=== PATIENT | female | born 1955 | race Caucasian/White ===

== ENCOUNTER 2016-04-25 09:55 | Outpatient (CLI) | payer OTHER ==
--- NOTE | 2016-04-25 12:24 | DIAGNOSTIC IMAGING REPORT ---
PROCEDURE: MR LTD LOWER EXT JOINT-LEFT INDICATION: OSTEOARTHRITIS. Jennings and Nephew protocol for preop knee replacement. TECHNIQUE: Limited MRI of the knee was performed with high-resolution PD sagittal images. In addition, AP radiographs of the lower extremity were obtained with scanogram markers. Diagnostic interpretation is not provided. IMPRESSION: 1. Preoperative Jennings and Nephew protocol for knee prosthesis.
[2016-06-16] MEDS ORDERED: HYDROCHLOROTHIA25 MG PO (18:38)
[2016-06-16] MEDS ORDERED: LOSARTAN POTASS50 MG PO (18:38)
[2016-06-16] MEDS ORDERED: METOPROLOL SUCC50 MG PO (18:38)
[2016-06-16] MEDS ORDERED: PAROXETINE HCL10 MG PO (18:39)
[2016-06-16] MEDS ORDERED: OMEPRAZOLE20 M1 PO (18:39)
[2016-06-16] MEDS ORDERED: AMITRIPTYLINE H25 MG PO (18:39)
[2016-06-16] MEDS ORDERED: IBUPROFEN600 MG PO (18:40)
[2016-06-16] MEDS ORDERED: NORCO1 TAB PO (18:41)
== END 2016-04-25 23:00 ==
LOC: MRI SRH 09:55
DX: Z01.818 Encounter for other preprocedural examination (principal); M17.0 Bilateral primary osteoarthritis of knee

== ENCOUNTER 2016-05-02 10:15 | Outpatient (CLI) | payer OTHER ==
--- NOTE | 2016-05-02 15:38 | DIAGNOSTIC IMAGING REPORT ---
PROCEDURE: MG UNILATERAL DIAG-RT W/CAD INDICATION: MASS OF RT BREAST TECHNIQUE: Spot compression mammographic views of the right breast in the CC and MLO projection. A direct lateral right breast mammogram using CAD. The patient then went to ultrasound where alvarez-scale and color Doppler sonographic imaging of the right breast was performed. COMPARISON: 09/03/2015 and 08/18/2015, both from outside institutions. FINDINGS: Mammograms: Mildly dense scattered glandular elements of the right breast. Glandularity is present more in the lateral aspect of the breast. With focal spot compression, there is a partially circumscribed ovoid region measuring approximately 1.1 x 1.5 cm with partially obscured margins in the eight to nine o'clock position of the right breast, seen best on the CC view. No associated calcification or adjacent architectural distortion. This finding is stable compared to the prior study. Ultrasound: In the eight to nine o'clock position laterally in the right breast, there is a focal ovoid area of heterogeneous tissue composed of both microcystic and thick hyperechoic fibrous bands measuring approximately 1.1 x 0.8 by 0.7 cm. This area is surrounded by thick fibrous tissue. There is no internal vascularity or posterior shadowing. This finding was present on the prior ultrasound and has not significantly changed in size or characteristics. Also noted is a 6 mm benign-appearing lymph node in the 9 o'clock position, also stable compared to the prior study. IMPRESSION: 1. Focal area of heterogeneous tissue in the lateral right breast appears stable. Differential diagnosis includes benign apocrine metaplasia, degenerating fat or fibroid, much less likely DCIS. Given its discrete appearance on mammogram and lack of prior comparisons, an ultrasound guided biopsy to document benignity is recommended. 2. Findings and recommendations were discussed with the patient and with Dr. Anderson in the office of Dr. Wong. RESULT CODE: 4- Suspicious abnormality. A. A negative report should not delay biopsy if a dominant or clinically suspicious mass is present. 10-15% of cancers are not identified by x-ray. B. A negative report may reinforce clinical impression. C. Adenosis and dense breasts may obscure an underlying neoplasm. D. False positive reports average 6-10%. E.. A yearly screening mammogram is recommended. A reminder letter will be scheduled.
[2016-06-16] MEDS ORDERED: HYDROCHLOROTHIA25 MG PO (18:38)
[2016-06-16] MEDS ORDERED: METOPROLOL SUCC50 MG PO (18:38)
[2016-06-16] MEDS ORDERED: LOSARTAN POTASS50 MG PO (18:38)
[2016-06-16] MEDS ORDERED: OMEPRAZOLE20 M1 PO (18:39)
[2016-06-16] MEDS ORDERED: PAROXETINE HCL10 MG PO (18:39)
[2016-06-16] MEDS ORDERED: AMITRIPTYLINE H25 MG PO (18:39)
[2016-06-16] MEDS ORDERED: IBUPROFEN600 MG PO (18:40)
[2016-06-16] MEDS ORDERED: NORCO1 TAB PO (18:41)
== END 2016-05-02 23:00 ==
LOC: MAM SRH 10:15
DX: Z12.31 Encounter for screening mammogram for malignant neoplasm of breast (principal)

== ENCOUNTER 2016-05-12 10:27 | Outpatient (CLI) | payer OTHER ==
--- NOTE | 2016-05-12 12:26 | DIAGNOSTIC IMAGING REPORT ---
PROCEDURE: US NEEDLE CORE BREAST BX-RIGHT INDICATION: Right breast nodule. TECHNIQUE: Informed consent was obtained and the patient was informed of the usual risks and complications including infection, bleeding, and allergy. Supine position. COMPARISON: Comparison is made to mammogram and right breast ultrasound 05/02/2016. FINDINGS: Following sterile preparation and 1% lidocaine local anesthetic, ultrasound guidance was utilized to place a 13.5-gauge coaxial needle into the right lateral breast and directed into a 1.1 cm heterogeneous and/or cystic area. Four core biopsy samples were obtained with a 14-gauge biopsy instrument. Samples were placed in formalin. The patient tolerated the procedure reasonably well and was discharged home in satisfactory condition with instructions to call me for any untoward symptoms. IMPRESSION: 1. Successful ultrasound-guided biopsy of right breast mass/nodule.
[2016-06-16] MEDS ORDERED: METOPROLOL SUCC50 MG PO (18:38)
[2016-06-16] MEDS ORDERED: HYDROCHLOROTHIA25 MG PO (18:38)
[2016-06-16] MEDS ORDERED: LOSARTAN POTASS50 MG PO (18:38)
[2016-06-16] MEDS ORDERED: OMEPRAZOLE20 M1 PO (18:39)
[2016-06-16] MEDS ORDERED: PAROXETINE HCL10 MG PO (18:39)
[2016-06-16] MEDS ORDERED: AMITRIPTYLINE H25 MG PO (18:39)
[2016-06-16] MEDS ORDERED: IBUPROFEN600 MG PO (18:40)
[2016-06-16] MEDS ORDERED: NORCO1 TAB PO (18:41)
== END 2016-05-12 23:00 ==
LOC: US SRH 10:27
PROC: 0HBT3ZX Excision of Right Breast, Percutaneous Approach, Diagnostic (ICD-10-PCS; principal; 2016-05-12)
PROC: BH40ZZZ Ultrasonography of Right Breast (ICD-10-PCS; 2016-05-12)
DX: N63 Unspecified lump in breast (principal)

== ENCOUNTER 2016-06-13 11:34 | Outpatient (CLI) | payer OTHER ==
--- NOTE | 2016-06-13 13:16 | DIAGNOSTIC IMAGING REPORT ---
PROCEDURE: XR CHEST 2 VIEW INDICATION: PRE OP TECHNIQUE: PA and lateral views. COMPARISON: None. FINDINGS: Lungs are clear. Heart and mediastinum are normal. Thorax is normal. IMPRESSION: 1. Negative chest.
[2016-06-16] MEDS ORDERED: HYDROCHLOROTHIA25 MG PO (18:38)
[2016-06-16] MEDS ORDERED: LOSARTAN POTASS50 MG PO (18:38)
[2016-06-16] MEDS ORDERED: METOPROLOL SUCC50 MG PO (18:38)
[2016-06-16] MEDS ORDERED: OMEPRAZOLE20 M1 PO (18:39)
[2016-06-16] MEDS ORDERED: PAROXETINE HCL10 MG PO (18:39)
[2016-06-16] MEDS ORDERED: AMITRIPTYLINE H25 MG PO (18:39)
[2016-06-16] MEDS ORDERED: IBUPROFEN600 MG PO (18:40)
[2016-06-16] MEDS ORDERED: NORCO1 TAB PO (18:41)
== END 2016-06-13 23:00 ==
LOC: RT SRH 11:34
DX: Z01.810 Encounter for preprocedural cardiovascular examination (principal); Z01.811 Encounter for preprocedural respiratory examination; Z01.812 Encounter for preprocedural laboratory examination
CPT/HCPCS: 90001; 90004; 90074; 90100; 90155; 91004; 91239; 91286; 94060; 95059; 95150

== ENCOUNTER 2016-06-21 06:22 | Inpatient (IN) | payer OTHER ==
--- NOTE | 2016-06-14 06:49 | HISTORY AND PHYSICAL ---
ADMITTED: 06/21/2016 CHIEF COMPLAINT: 1. Left knee pain HISTORY OF PRESENT ILLNESS: The patient has had progressive pain in her knee. It has not been relieved with conservative treatment, and she is being admitted for knee replacement surgery. Her MRI was again reviewed and shows her to have severe arthritic change of the knees. She continues to have pain actually on both knees; she says right is about as bad as the left. She was debating whether she should maybe do the left after she gets the right one done, but both of them are bad and both of them are giving her a lot of pain. She would like to proceed with the surgery. I went over again with her the nature of the surgery, where the incision would be, showed her on the models where the bone cuts were made, how the prosthetic components are placed, the risks of infection, of blood clots, of need for further surgery, including removal of the components if she does develop a deep infection, bleeding, with possible need for blood transfusion, of stiffness , pain, problems with healing, anesthesia complications. All were reviewed with her today, and she understands and accepts and would like to proceed. MEDICAL/SURGICAL HISTORY: Her past history is negative for any prior surgeries. She does have medical problems with acid reflux, insomnia, hypertension, sleep apnea, depression, and anxiety. MEDICATIONS: 1. She has been taking metoprolol 50 mg twice a day. 2. Omeprazole 20 mg a day. 3. She takes also a diuretic but is not show exactly what that is. 4. An antidepressant, but was not sure exactly what those were. 5. 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 ALLERGIES: 1. NO KNOWN DRUG ALLERGIES. SOCIAL HISTORY: Positive for tobacco use, but she quit 10 years ago. She says that she smoked for about 40 years and finally quit, and has not smoked in the last 10 years. FAMILY HISTORY: She has a negative family history for any type of bleeding or anesthesia complication. REVIEW OF SYSTEMS: Otherwise negative. She has not had any loss of consciousness, seizure disorder. She does have some headaches, but none at present. She has had no chest pain, shortness of breath, palpitations, cough, congestion, fever, chills, nausea, vomiting, diarrhea or dysuria. She does have some chronic low back pain, also associated with osteoarthritis. PHYSICAL EXAMINATION: VITAL SIGNS: Her weight is 256 pounds. She has a BMI of 44. Blood pressure was 145/95. Height 64 inches, pulse is 67, respirations 16. HEENT: Her head is normocephalic and atraumatic. Her eyes are clear. Extraocular muscles are intact. Hearing is grossly normal. There is no drainage from the ear canals. Mouth and posterior oropharynx are clear. She is edentulous and has upper and lower plates in place. NECK: Without jugular venous distention. CHEST: Symmetrical. HEART: Regular rate and rhythm without murmur. LUNGS: Clear to auscultation. ABDOMEN: Obese. EXTREMITIES: For knee exam, I will refer you to my previous clinic notes, but she does have severe arthritic changes of both knees and is having pain particularly in the left knee, which we were planning to replace. IMPRESSION: 1. Knee arthritis. PLAN: The plan will be for knee replacement surgery as noted above.
[~2016-06-21] VITALS: Ht 162.6 cm; Wt 117.0 kg
[2016-06-21] VITALS (9 sets, daily range): BP systolic 113–145; BP diastolic 81–94
[~2016-06-21 06:22] MED LIST: AMITRIPTYLINE H25 MG PO; HYDROCHLOROTHIA25 MG PO; IBUPROFEN600 MG PO; LOSARTAN POTASS50 MG PO; METOPROLOL SUCC50 MG PO; NORCO1 TAB PO; OMEPRAZOLE20 M1 PO; PAROXETINE HCL10 MG PO
--- NOTE | 2016-06-21 10:59 | OPERATIVE REPORT ---
DATE OF SURGERY: 06/21/2016 SURGEON: GLENNY RUIZ MD PREOPERATIVE DIAGNOSIS: 1. Arthritis of the left knee POSTOPERATIVE DIAGNOSIS: 1. Arthritis of the left knee. PROCEDURE PERFORMED: 1. Operation proposed is left knee replacement; the operation performed is the left knee replacement. CONDITION: Stable. ESTIMATED BLOOD LOSS: 200 mL. COMPLICATIONS: None. PATHOLOGY SPECIMEN: Bone and tissue removed from the knee, including the anterior cruciate ligament, the menisci, the cut surfaces of the femur, tibia, and patella, and the infrapatellar fat pad. SURGICAL TECHNIQUE: The patient was taken to the operating room where she was given a general anesthetic. A tourniquet was applied to the left thigh. The leg was prepped and draped in the usual sterile fashion. We made a longitudinal incision anteriorly, carried down through subcutaneous tissue. A standard medial parapatellar approach with a limited medial release was performed, and the cutting block for the distal femur was placed into position, pinned in place, and the distal femoral cut was made. We went on to remove the anterior horns of the menisci. The remainder of the menisci were removed later in the case. I also removed the major portion of infrapatellar fat pad and the anterior cruciate ligament. The #5 cutting block was placed into position and the cuts made for anterior, posterior, and chamfer cuts. Then we removed the cutting block, placed the extramedullary cutting guide for the tibia and made the tibial cut and then sized the tibia; it was a # 4 size. This was expected from our preoperative plan, and we placed the tibial base plate in place, pinned it in place, and then drilled the hole for the stem and used a special osteotome to make the cutout for the fingers. We then went through a trial reduction and, with a #5 femur and #4 tibia and the thinnest of the articular spacers in place. The patient was stable throughout. She had excellent full extension easily possible and full flexion. The patellar tracking was perfect. The patient then had removal of the trial instruments after drilling the holes for lugs on the femur, and I made the cut for the patellar component. It measured 9 mm of bone off the patellar articular surface and then measuring and was found to be a 32 mm size. We drilled the drill holes for the lugs on the patellar component, undercut them slightly with a small curette, chamfered the margins medial and lateral, where the patella was wider than it was tall. We exsanguinated the limb and inflated the tourniquet to 350 mmHg. Cleaned the cut surfaces of the bone with a pulse lavage unit and then dried them with lap sponges. Methylmethacrylate cement was vacuum mixed, placed on the backside of the tibial component, on the tibia, down the hole for the tibial stem, and then the tibia was seated down into place. The extruded cement was removed from around the margins. More cement was placed on the backside of the femoral component and on the femoral cut surface, and the femur was seated down into place. Again, the extruded cement was removed from around the margins. The tibial insert was seated into place as best we could, and the knee held in extension. Then we put more cement on the clean cut surfaces of the patella and the back side of the patellar component, and it was seated in place. Again, the extruded cement was removed from around the margins. Once the cement had hardened, we went back to the tibial insert. We just never really got it to seat down properly on the lateral side. So we took it out, got another insert and put it in place. This time it seated in perfectly. Again, the knee was stable through full flexion and extension. The patellar tracking was perfect. All appeared to be well. We closed using #2 interrupted and running nonabsorbable braided suture for the deep fascial layer and #2-0 Polysorb running suture for the subcutaneous layer and #3-0 Polysorb subcuticular skin closure. She was dressed with Xeroform and ABD pads. She was injected with Dr. Segal's mixture of local anesthetic, and this was injected around the femur prior to the closure. At the end of the closure, she was dressed with Xeroform, ABDS, wrapped with sterile Webril, and then with Sriram bandages loosely applied. She was awakened and taken to the recovery room in stable condition.
--- NOTE | 2016-06-21 11:15 | DIAGNOSTIC IMAGING REPORT ---
PROCEDURE: XR KNEE 1 OR 2 VIEWS - left INDICATION: post-op left tka TECHNIQUE: Two-views COMPARISON: Bilateral knee films 02/08/2016 FINDINGS: The patient is status post a total knee replacement on the left The components are in good position. IMPRESSION: 1. Status post left total knee replacement
[2016-06-22] VITALS (9 sets, daily range): BP systolic 100–139; BP diastolic 65–95
--- NOTE | 2016-06-22 09:39 | Progress Note ---
Subjective General VSS Afeb WBC 12.9 Hgb 10.6 FBS 117 No c/o, moderate pain. Getting up to commode w/o problem. Bandage dry and clean, NMV intact distally with mild pedal edema. PT today.
[2016-06-23 02:56] VITALS: BP 124/88
[2016-06-23 06:49] VITALS: BP 120/83
--- NOTE | 2016-06-23 08:14 | Progress Note ---
Subjective General VSS Af Moderate pain, no other c/o. Doing OK with PT. DC IV. Continue PT
--- NOTE | 2016-06-23 08:14 | Progress Note ---
Subjective General VSS Af Moderate pain, no other c/o. Doing OK with PT. DC IV. Continue PT
[2016-06-23 11:16] VITALS: BP 118/78
[2016-06-23 14:05] VITALS: BP 123/86
[2016-06-23 18:00] VITALS: BP 144/77
[2016-06-23 23:18] VITALS: BP 134/88
[2016-06-24 02:23] VITALS: BP 157/90
[2016-06-24 06:09] VITALS: BP 148/103
[2016-06-24] MEDS ORDERED: OXAYDO5 MG PO (08:34)
--- NOTE | 2016-06-24 08:36 | Provider's Discharge Care Plan ---
Problem, Goal, Plan Problem List 1. Osteoarthritis, knee
--- NOTE | 2016-06-24 08:36 | Provider's Discharge Care Plan ---
Problem, Goal, Plan Problem List 1. Osteoarthritis, knee
--- NOTE | 2016-06-24 09:16 | DISCHARGE SUMMARY ---
ADMIT DATE: 06/21/2016 DISCHARGE DATE: 06/24/2016 DISCHARGE INSTRUCTIONS: 1. Arthritis. BRIEF HISTORY: The patient had left knee arthritis for a number of years and increasing pain as time went on. She had come to the point where no conservative treatment was helping her and she was having quite a bit of pain and difficulty with ambulation and so was admitted for a knee replacement. HOSPITAL COURSE: The patient was admitted to the hospital, underwent her surgery on the day of admission. Postoperatively, no serious complications were encountered. By the time of her discharge, she was stable, afebrile. The incision was dry and clean and healing well. Her blood pressure is up a bit, but it was felt to be likely related to the stress of being hospitalized and having her surgery and she has known history of hypertension, which had been well controlled with her home medications so I will have her continue with those when she goes home. DISCHARGE INSTRUCTIONS/MEDICATIONS: The patient had oxycodone ordered for pain control at home and she can take 1 or 2 of the 5 mg tabs every 4 hours as needed. She will keep the incision dry, clean and covered and will take an aspirin pill twice daily. She will come back for followup in our office in a week's time and the condition at discharge is stable. The prognosis is good. The discharged status is home.
[2016-06-24 10:32] VITALS: BP 134/89
== END 2016-06-24 11:30 | disposition home or self-care (01) | DRG 302 ==
LOC: SCU SRH 06:22 → U SRH 07:30 → ACUTE2 SRH 11:37
PROVIDERS: ADMIT Orthopaedic Surgery
PROC: 0SRD0J9 Replacement of Left Knee Joint with Synthetic Substitute, Cemented, Open Approach (ICD-10-PCS; principal; 2016-06-21 07:30)
DX: M17.0 Bilateral primary osteoarthritis of knee (principal); Z22.321 Carrier or suspected carrier of Methicillin susceptible Staphylococcus aureus; I10 Essential (primary) hypertension; K21.9 Gastro-esophageal reflux disease without esophagitis; G47.30 Sleep apnea, unspecified; F41.9 Anxiety disorder, unspecified; F32.9 Major depressive disorder, single episode, unspecified

== ENCOUNTER 2016-09-14 11:40 | Outpatient (CLI) | payer OTHER ==
[~2016-09-14 11:40] MED LIST changes: +OXAYDO5 MG PO
--- NOTE | 2016-09-14 12:49 | DIAGNOSTIC IMAGING REPORT ---
PROCEDURE: MR LTD LOWER EXT JOINT-RIGHT INDICATION: OA RT KNEE. Jnenings and Nephew protocol for preop knee replacement. TECHNIQUE: Limited MRI of the knee was performed with high-resolution PD sagittal images. In addition, AP radiographs of the lower extremity were obtained with scanogram markers. Diagnostic interpretation is not provided. IMPRESSION: 1. Preoperative Jennings and Nephew protocol for knee prosthesis.
== END 2016-09-14 23:00 ==
LOC: MRI SRH 11:40
DX: Z01.818 Encounter for other preprocedural examination (principal); M17.11 Unilateral primary osteoarthritis, right knee